=== PATIENT | male | born 1965 | race Caucasian/White ===

== ENCOUNTER → 2017-11-06 | Outpatient (CLI) | payer OTHER ==
--- NOTE | 2017-11-06 10:00 | DIREP ---
PROCEDURE:US ABDOMEN LIMITED(SINGLE ORGAN-QUAD) COMPARISON:None. INDICATIONS:EPIGASTRIC PAIN FINDINGS: CBD:0.3 cm GALLBLADDER:0.3 cm RIGHT KIDNEY:8.7 x 4.9 x 6.4 cm PANCREAS:The pancreas is largely obscured by bowel gas shadowing. LIVER:Increased hepatic echotexture consistent with hepatic steatosis. There is decreased echotexture adjacent to the gallbladder fossa consistent with focal fatty sparing. No focal hepatic mass. Hepatopetal flow in the portal vein. GALLBLADDER:There is sludge present in the dependent portion of the gallbladder. BILIARY:There is no biliary ductal dilatation. RIGHT KIDNEY:Small. No hydronephrosis. OTHER:Negative. No ascites is identified. CONCLUSION: 1. Hepatic steatosis. 2. Gallbladder sludge. 3. Small right kidney. 4. Limited visualization of pancreas. Dictated by: LAMONT Physician on 11/06/2017 at 09:36 AM jose [email or web address]
== END | disposition home or self-care (01) ==
LOC: RAD 08:05
PROVIDERS: ATTEND Family Medicine
DX: K76.0 Fatty (change of) liver, not elsewhere classified (principal); K82.8 Other specified diseases of gallbladder
CPT/HCPCS: 76705